=== PATIENT | male | born 1985 | race Caucasian/White ===

== ENCOUNTER → 2016-03-13 | Outpatient (CLI) | payer BC ==
[~2016-03-13] MED LIST: NO HOME MEDS
[2016-03-13 09:49] LABS: BASO % 0.8 %; BASO ABS # 0.05 K/uL (0-0.2); COMPLETE YES; EOS % 3.4 %; HEMATOCRIT 40.1 % (42-52); IG% 0.3 %; LYMPH % 28.2 %; LYMPH ABS # 1.76 K/uL (1.2-3.4); MEAN CELL VOLUME 89.9 fL (80-100); MEAN CORPUSCULAR HEMOGLOBIN 30.7 pg (25-34); MEAN CORPUSCULAR HGB CONC 34.2 g/dl (32-36); MEAN PLATELET VOLUME 11.5 fL (7.4-10.4); MONO % 9.1 %; NEUT % 58.2 %; PLATELET COUNT 283 K/uL (130-400); RED BLOOD COUNT 4.46 M/uL (4.7-6.1); WHITE BLOOD COUNT 6.24 K/uL (4.8-10.8)
[2016-03-13 10:00] LABS: ALT/SGPT 36 U/L (12-78); AST/SGOT 25 U/L (15-37); BLOOD UREA NITROGEN 16 mg/dl (7-18); BUN/CREATININE RATIO 22.2 (10-20); CALCIUM 8.6 mg/dl (8.5-10.1); CARBON DIOXIDE 26 mmol/L (21-32); CHLORIDE 106 mmol/L (98-107); CHOLESTEROL 199 mg/dl (0-200); CREATININE 0.73 mg/dl (0.60-1.40); GLUCOSE 86 mg/dl (70-99); MAGNESIUM 2.3 mg/dl (1.8-2.4); POTASSIUM 4.1 mmol/L (3.5-5.1); SODIUM 142 mmol/L (136-145)
[2016-03-13 10:05] LABS: ALB/GLOB RATIO 1.7 (0.9-2); ALKALINE PHOSPHATASE 88 U/L (45-117); CHOLESTEROL/HDL RATIO 2.8; HDL CHOLESTEROL 70 mg/dl; LDL CHOLESTEROL CALCULATED 115 mg/dl; PHOSPHORUS 4.4 mg/dl (2.5-4.9); TRIGLYCERIDES 69 mg/dl (0-150); VERY LOW DENSITY LIPOPROT CALC 14 mg/dl
== END | disposition home or self-care (01) ==
LOC: C.LAB1850 07:44
PROVIDERS: ATTEND Internal Medicine
DX: Z13.220 Encounter for screening for lipoid disorders (principal); T50.901A Poisoning by unspecified drugs, medicaments and biological substances, accidental (unintentional), initial encounter